=== PATIENT | female | born 1965 | race Caucasian/White ===

== ENCOUNTER → 2018-03-16 | Outpatient (CLI) | payer OTHER | END | disposition home or self-care (01) | LOC: KCIC MAMMO 11:07 | DX: Z12.31 Encounter for screening mammogram for malignant neoplasm of breast (principal) | CPT/HCPCS: 77067 ==

== ENCOUNTER → 2018-11-08 | Outpatient (CLI) | payer OTHER ==
--- NOTE | 2018-11-08 15:59 | KCIC ---
EXAM: AP, oblique and lateral views of the left foot DATE: 11/08/2018 12:00 AM INDICATION: Left foot pain for 6 weeks. Pain with Ambulation COMPARISON: No Prior FINDINGS: No evidence of acute fracture or dislocation. Hallux valgus with mild lateral subluxation of the sesamoids. Mild flexion deformity of the toes possibly positional. Calcaneal enthesopathy. Prominent dorsal talar spurring is seen. Prominent type II accessory navicular, nonfused. IMPRESSION: 1. No evidence of acute fracture or dislocation. 2. Hallux valgus with mild lateral subluxation of the sesamoids. 3. 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 Electronically signed by: Reyes Jones MD (11/08/2018 3:55 PM) [id number]
== END | disposition home or self-care (01) ==
LOC: KCIC 15:10
PROVIDERS: ATTEND Nurse Practitioner Family
DX: S93.332A Other subluxation of left foot, initial encounter (principal); M20.12 Hallux valgus (acquired), left foot; M77.32 Calcaneal spur, left foot; X58.XXXA Exposure to other specified factors, initial encounter; Y93.89 Activity, other specified; Y92.89 Other specified places as the place of occurrence of the external cause; Y99.8 Other external cause status
CPT/HCPCS: 73630

== ENCOUNTER → 2018-12-13 | Outpatient (CLI) | payer OTHER ==
--- NOTE | 2018-12-14 03:24 | RAD ---
Pelvic ultrasound dated 12/13/2018. No comparison available. Clinical data indication: Abnormal uterine bleeding. FINDINGS: Transabdominal and transvaginal imaging was performed. Uterus measures 8.6 x 4.2 x 3.9 cm. Small nodular focus within the anterior uterine myometrium measuring 2.7 cm in size, consistent with fibroid. The endometrium is normal in thickness measuring 3 mm. Neither ovary is clearly identified. No apparent adnexal mass or free fluid. IMPRESSION: 1. No acute sonographic abnormality. Normal endometrial thickness for age. 2. Fibroid uterus. 3. Neither ovary is clearly identified. There is no apparent adnexal mass or free fluid. Electronically signed by: Oskar Mariee MD (12/14/2018 3:21 AM) [id number]
== END | disposition home or self-care (01) ==
LOC: US 10:00
PROVIDERS: ATTEND Nurse Practitioner Family
DX: D25.9 Leiomyoma of uterus, unspecified (principal)
CPT/HCPCS: 76830; 76856

== ENCOUNTER → 2019-09-27 | Outpatient (CLI) | payer OTHER ==
--- NOTE | 2019-09-27 10:29 | KCIC ---
Bilateral diagnostic digital mammograms: Reason for examination: Right breast pain laterally. Comparison is made to previous studies dated 03/16/2018 and 03/18/2012. Interpretation was made with the benefit of CAD. The skin and nipples show no abnormalities. No abnormal lymph nodes are seen. The breast parenchyma is predominantly fatty. (Breast density: Category A.) There are no dominant masses, suspicious calcifications or architectural distortions. Scattered benign calcifications are again seen. Impression: No evidence of malignancy. Recommend routine screening. BI-RADS Category 2: Benign. "Our facility is accredited by the [employer] Mammography [employer]." This patient's information has been entered into a reminder system for the patient to be notified with the results of her examination and a target date for the next mammogram. Electronically signed by: Blank Pacheco MD (09/27/2019 10:26 AM) [id number]
== END | disposition home or self-care (01) ==
LOC: KCIC MAMMO 09:30
PROVIDERS: ATTEND Nurse Practitioner Family
DX: N64.89 Other specified disorders of breast (principal)
CPT/HCPCS: 77066

== ENCOUNTER → 2019-12-26 | Outpatient (CLI) | payer OTHER ==
--- NOTE | 2019-12-26 10:43 | KCIC ---
3 views right ankle 12/26/2019 12:00 AM Indication: Right ankle pain Comparison: None Findings: No evidence of acute fracture or dislocation is identified. Degenerative changes are seen partially involving the medial aspect of the tibiotalar joint. Possible accessory ossicle or chronic avulsion injury is seen involving the medial malleolus. No acute soft tissue abnormalities or effusion are seen. Spurring at the insertion of the plantar fascia on the calcaneus noted. IMPRESSION: Degenerative changes described without evidence of acute osseous abnormality Electronically signed by: Craig Brar MD (12/26/2019 10:40 AM) [id number]
== END | disposition home or self-care (01) ==
LOC: KCIC 10:02
PROVIDERS: ATTEND Nurse Practitioner Family
DX: M19.071 Primary osteoarthritis, right ankle and foot (principal); M77.31 Calcaneal spur, right foot
CPT/HCPCS: 73610

== ENCOUNTER → 2020-11-28 | Outpatient (CLI) | payer MEDICARE, OTHER ==
--- NOTE | 2020-11-28 13:20 | KCIC ---
Bilateral digital screening mammograms: Reason for examination: Routine screening. Comparison is made to previous studies dated 09/27/2019 and 03/16/2018. Interpretation was made with the benefit of CAD. The skin and nipples show no abnormalities. No abnormal lymph nodes are seen. The breast parenchyma i s predominantly fatty. (Breast density: Category A.) There are no dominant masses, suspicious calcifi cations or architectural distortions. A few benign calcifications are again seen. Impression: No evidence of malignancy. Recommend routine screening. BI-RADS Category 2: Benign. "Our facility is accredited by the [employer] Mammography Program." This patient's information has been entered into a reminder system for the patient to be notified wit h the results of her examination and a target date for the next mammogram. Electronically signed by: Blank Pacheco MD (11/28/2020 1:17 PM) [id number]
== END ==
LOC: KCIC MAMMO 10:36
PROVIDERS: ATTEND Nurse Practitioner Family
DX: Z12.31 Encounter for screening mammogram for malignant neoplasm of breast (principal); N64.89 Other specified disorders of breast
CPT/HCPCS: 77067